=== PATIENT | male | born 1990 | race Caucasian/White ===

== ENCOUNTER → 2025-07-28 16:00 | Outpatient (CLI) | payer OTHER, SELFPAY ==
--- NOTE | 2025-07-28 16:04 | DI.RAD.S_ITS ---
PROCEDURE: XR ANKLE RT MIN 3V INDICATIONS: RT ANKLE PAIN TECHNIQUE: 3 views of the ankle were acquired. COMPARISON: None. FINDINGS: Bones: There are no osseous abnormalities. Tibiotalar and talocalcaneal joints: Normal in width and alignment without arthritic change. Soft tissues: No soft tissue swelling, calcification or mass. IMPRESSION: Normal ankle Dictated by: Gareth Roceh M.D. on 07/29/2025 at 12:10 Approved by: Gareth Roche M.D. on 07/29/2025 at 12:10
== END ==
PROVIDERS: PCP Family Medicine; Referring Provider Family Medicine; Visit Provider Family Medicine
DX: M25.571 Pain in right ankle and joints of right foot (principal)
CPT/HCPCS: 73610